=== PATIENT | female | born 1990 | race Asian ===

== ENCOUNTER 2018-01-05 15:52 | Emergency (ER) | payer OTHER ==
[~2018-01-05] VITALS: Ht 162.6 cm; Wt 62.0 kg
[~2018-01-05 15:52] MED LIST: RISP1TAB18 PO; VENL75CA94 PO
[2018-01-05 15:54] VITALS: Ht 162.6 cm; Wt 62.0 kg
[2018-01-05] MEDS ORDERED: QUET1TAB7 PO (16:26)
--- NOTE | 2018-01-05 16:50 | EMERGENCY ROOM VISIT NOTE ---
History Report prepared by Mervat: Carlitos Cruz Under the Supervision of: Dr. Ezekiel Cruz M.D. First contact with patient: 15:58 Chief Complaint: MENTAL HEALTH EVALUATION Stated Complaint: FEEL DESPERATE WANT TO END MY LIFE DO NOT WANT TO History of Present Illness The patient is a 27 year old female who presents to the Emergency Room with complaints of constant suicidal ideations beginning a few days ago. The patient states she has been feeling very hopeless about her life. She reports she feels suicidal and cannot sleep because of it. The patient notes she wants to cut herself. She states she grabbed a knife yesterday, and she did not do anything because her mother was home. She notes she was in [facility] three weeks ago and was discharged on Risperdal. The patient reports she has not taken her medication that she was prescribed because her doctor in [place] and her doctor here are telling her to take two different things. She notes she is afraid to do anything including brushing her teeth and showering while on the Risperdal. The patient denies homicidal ideations, auditory hallucinations, physical complaints, chest pain, swelling in her legs, overdosing on medication, taking aspirin or Tylenol, drug use, and alcohol use. The patient's friends and family state she has appeared drained for the past week. They reports they called [facility] and did not talk to anyone. 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 They state she is not coming back this fall and is supposed to go home to [place] on January 08. The friends and family report a flight has not been booked yet because she is not stable. Source of History: patient, parent, family Onset: a few days ago Quality: other (suicidal ideations) Timing: constant Modifying Factors (Worsening): other (stressful environment) Associated Symptoms: No chest pain Note: Associated symptoms: feeling hopeless, inability to sleep Denies: homicidal ideations, auditory hallucinations, physical complaints, swelling in her legs, overdosing on medication, taking aspirin or Tylenol, drug use, and alcohol use Review of Systems See HPI for pertinent positives & negatives. A total of 10 systems reviewed and were otherwise negative. Past Medical & Surgical Medical Problems: (1) Bipolar II disorder (2) depression (3) History of depression (4) Nausea Old medical records were reviewed. Nurse's notes were reviewed and I agree with. Family History Patient reports no known family medical history. Social History Smoking Status: Never Smoker Drug Use: none Marital Status: single Housing Status: lives with roommate Occupation Status: [email or web address] student Current/Historical Medications Scheduled Quetiapine Fumarate (Seroquel), 25 MG PO DAILY Venlafaxine Hcl (Effexor Xr), 150 MG PO QAM Allergies Coded Allergies: No Known Allergies (Unverified , 01/05/18) Physical Exam Vital Signs Date Time Temp Pulse Resp B/P (MAP) Pulse Ox O2 Delivery O2 Flow Rate FiO2 01/05/18 18:30 89 18 118/67 98 Room Air 01/05/18 15:54 37.1 114 17 131/85 98 Room Air Physical Exam General: Non-ill appearing young female in no acute distress. HEENT: Normal cephalic atraumatic. Pupils are equal round and reactive to light. Extraocular movements are intact. Oropharynx is pink with moist mucous membranes. No swelling of the mouth lips or tongue. Neck: Supple with a midline trachea. No meningeal signs or stiffness, no JVD or bruits. No Stridor. Chest: Clear to auscultation bilaterally. No wheezes or rhonchi. No increased work of breathing. Heart: regular rate and rhythm. Abdomen: Soft nontender, nondistended without rebound guarding or rigidity. Extremities: No cyanosis clubbing or edema. No calf tenderness or assymetry Spine/Back. Non tender to palpation. No CVA tenderness Skin: Good turgor without rashes. Neurologic exam: Cranial nerves two through 12 are intact. Motor and sensation are intact and symmetrical throughout. Psychiatric: Flattened affect, softly spoken, suicidal ideations, denies homicidal ideations. Medical Decision & Procedures Laboratory Results 01/05/18 16:38 Red Blood Count 4.23, Mean Corpuscular Volume 92.4, Mean Corpuscular Hemoglobin 31.4, Mean Corpuscular Hemoglobin Concent 34.0, Mean Platelet Volume 9.1, Neutrophils (%) (Auto) 72.9, Lymphocytes (%) (Auto) 17.5, Monocytes (%) (Auto) 8.7, Eosinophils (%) (Auto) 0.3, Basophils (%) (Auto) 0.3, Neutrophils # (Auto) 8.41, Lymphocytes # (Auto) 2.01, Monocytes # (Auto) 1.00, Eosinophils # (Auto) 0.03, Basophils # (Auto) 0.03 01/05/18 16:38 Test 01/05/18 16:38 01/05/18 17:00 White Blood Count 11.51 K/uL (4.8-10.8) Red Blood Count 4.23 M/uL (4.2-5.4) Hemoglobin 13.3 g/dL (12.0-16.0) Hematocrit 39.1 % (37-47) Mean Corpuscular Volume 92.4 fL (80-100) Mean Corpuscular Hemoglobin 31.4 pg (25-34) Mean Corpuscular Hemoglobin Concent 34.0 g/dl (32-36) Platelet Count 314 K/uL (130-400) Mean Platelet Volume 9.1 fL (7.4-10.4) Neutrophils (%) (Auto) 72.9 % Lymphocytes (%) (Auto) 17.5 % Monocytes (%) (Auto) 8.7 % Eosinophils (%) (Auto) 0.3 % Basophils (%) (Auto) 0.3 % Neutrophils # (Auto) 8.41 K/uL (1.4-6.5) Lymphocytes # (Auto) 2.01 K/uL (1.2-3.4) Monocytes # (Auto) 1.00 K/uL (0.11-0.59) Eosinophils # (Auto) 0.03 K/uL (0-0.5) Basophils # (Auto) 0.03 K/uL (0-0.2) RDW Standard Deviation 42.4 fL (36.4-46.3) RDW Coefficient of Variation 12.5 % (11.5-14.5) Immature Granulocyte % (Auto) 0.3 % Immature Granulocyte # (Auto) 0.03 K/uL (0.00-0.02) Anion Gap 7.0 mmol/L (3-11) Est Creatinine Clear Calc Drug Dose 101.8 ml/min Estimated GFR () 132.7 Estimated GFR (Non- 114.5 BUN/Creatinine Ratio 9.9 (10-20) Calcium Level 9.3 mg/dl (8.5-10.1) Total Bilirubin 0.2 mg/dl (0.2-1) Direct Bilirubin < 0.1 mg/dl (0-0.2) Aspartate Amino Transf (AST/SGOT) 11 U/L (15-37) Alanine Aminotransferase (ALT/SGPT) 23 U/L (12-78) Alkaline Phosphatase 66 U/L (45-117) Total Protein 8.7 gm/dl (6.4-8.2) Albumin 4.3 gm/dl (3.4-5.0) Lipase 121 U/L (73-393) Thyroid Stimulating Hormone (TSH) 1.580 uIu/ml (0.300-4.500) Human Chorionic Gonadotropin, Qual NEG (NEG) Salicylates Level < 1.7 mg/dl (2.8-20) Acetaminophen Level < 2 ug/ml (10-30) Ethyl Alcohol mg/dL < 3.0 mg/dl (0-3) Urine Color YELLOW Urine Appearance CLOUDY (CLEAR) Urine pH 7.5 (4.5-7.5) Urine Specific [place] 1.011 (1.000-1.030) Urine Protein NEG (NEG) Urine Glucose (UA) NEG (NEG) Urine Ketones NEG (NEG) Urine Occult Blood 3+ (NEG) Urine Nitrite NEG (NEG) Urine Bilirubin NEG (NEG) Urine Urobilinogen NEG (NEG) Urine Leukocyte Esterase LARGE (NEG) Urine WBC (Auto) 10-30 /hpf (0-5) Urine RBC (Auto) 0-4 /hpf (0-4) Urine Hyaline Casts (Auto) 0 /lpf (0-5) Urine Epithelial Cells (Auto) >30 /lpf (0-5) Urine Bacteria (Auto) 3+ (NEG) Urine Pathogenic Casts /lpf (0) Urine Yeast (Auto) (NONE PRSENT) Urine Opiates Screen NEG (NEG) Urine Methadone, Qualitative NEG (NEG) Urine Barbiturates NEG (NEG) Urine Phencyclidine (PCP) Level NEG (NEG) Ur Amphetamine/Methamphetamine NEG (NEG) MDMA (Ecstasy) Screen NEG (NEG) Urine Benzodiazepines Screen NEG (NEG) Urine Cocaine Metabolite NEG (NEG) Urine Marijuana (THC) NEG (NEG) Laboratory studies as stated above per my review. ED Course 1602: Past medical records reviewed. The patient was evaluated in room A08, and a complete history and physical examination were performed. 1734: The patient is being evaluated by the mental health team. 1815: I discussed the test results with the patient and her friends and family. They have agreed to admission. 1837: There are no local beds available. They do not want to wait for a local bed. 1847: I discussed the need for admission. They are willing to wait for a local bed. 2145: I reevaluated the patient. She is sleeping. The bed search was suspended until morning. 2230: Ordered Quetiapine Fumarate 25mg PO 0030: The patient was signed out to Dr. Ozuna at the end of shift pending placement. Please refer to her documentation for more information. Medical Decision Differentials include, but are not limited to; depression, anxiety, suicidal ideations, metabolic abnormalities, toxicological process. This patient comes in for evaluation mental health issues. She was placed in room A7. She has not been sleeping and has been feeling suicidal. She has not tried to hurt herself but thought about cutting herself with a knife. She has been seen here as well as his follow on campus. She is dropping out of the semester and is going home to [place] when she is stable. She also has a doctor there. She is here with her mother as well as family friends. Urinalysis and blood work was obtained for medical clearance. She was seen by our psychiatric case filler. She was medically clear. She has nothing to suggest acute toxicologic, metabolic, electrolyte, or infectious process. Unfortunately there are no bed openings and the psych facilities locally are all full. She is going to end up staying here tonight and they will a resume bed search in the morning. With her thoughts of hurting herself I do not feel she can safely go home. I reviewed her regular meds and gave her evening dose of Seroquel 25 mg. She will be signed out at shift change to Dr. Ozuna who is the chicken cleaner doctor. Medication Reconcilliation Current Medication List: was personally reviewed by me Blood Pressure Screening Patient's blood pressure: Normal blood pressure Blood pressure disposition: Did not require urgent referral Impression Primary Impression: Suicidal ideation Additional Impressions: Depression Acute anxiety Scribe Attestation The scribe's documentation has been prepared under my direction and personally reviewed by me in its entirety. I confirm that the note above accurately reflects all work, treatment, procedures, and medical decision making performed by me. Departure Information Dispostion Still a Patient Referrals [facility] (PCP) Forms HOME CARE DOCUMENTATION FORM, IMPORTANT VISIT INFORMATION Patient Instructions My [facility] Problem Qualifiers
[2018-01-05 16:56] LABS: BASO % 0.3 %; BASO ABS # 0.03 K/uL (0-0.2); EOS % 0.3 %; EOS ABS # 0.03 K/uL (0-0.5); HEMATOCRIT 39.1 % (37-47); HEMOGLOBIN 13.3 g/dL (12.0-16.0); IG# 0.03 K/uL (0.00-0.02); LYMPH % 17.5 %; LYMPH ABS # 2.01 K/uL (1.2-3.4); MEAN CELL VOLUME 92.4 fL (80-100); MEAN CORPUSCULAR HEMOGLOBIN 31.4 pg (25-34); MEAN PLATELET VOLUME 9.1 fL (7.4-10.4); MONO % 8.7 %; NEUT % 72.9 %; NEUT ABS # 8.41 K/uL (1.4-6.5); PLATELET COUNT 314 K/uL (130-400); RED CELL DISTRIBUTION WIDTH CV 12.5 % (11.5-14.5); RED CELL DISTRIBUTION WIDTH SD 42.4 fL (36.4-46.3); WHITE BLOOD COUNT 11.51 K/uL (4.8-10.8)
[2018-01-05 17:25] LABS: ALBUMIN 4.3 gm/dl (3.4-5.0); ALKALINE PHOSPHATASE 66 U/L (45-117); ALT/SGPT 23 U/L (12-78); AST/SGOT 11 U/L (15-37); BLOOD UREA NITROGEN 7 mg/dl (7-18); CALCIUM 9.3 mg/dl (8.5-10.1); CARBON DIOXIDE 28 mmol/L (21-32); CREATININE 0.73 mg/dl (0.60-1.20); GLUCOSE 104 mg/dl (70-99); LIPASE 121 U/L (73-393); SODIUM 137 mmol/L (136-145); TOTAL PROTEIN 8.7 gm/dl (6.4-8.2)
[2018-01-05] MEDS ORDERED: QUETIAPINE FUMARATE 25 MG TAB PO STA (22:31)
[2018-01-05] MEDS ORDERED: hydrOXYzine HCL 25 MG TAB PO STA (23:35)
[2018-01-06] MEDS ORDERED: VENLAFAXINE HCL XR 75 MG CAPXR PO STA (05:18)
--- NOTE | 2018-01-06 05:19 | EMERGENCY ROOM VISIT NOTE ---
ED Visit Note First contact with patient: 01:23 This case was signed out to me at change of shift awaiting bed placement. The patient is having suicidal thoughts and is willing to sign herself in voluntarily. Nursing staff explained that she is having difficulty with sleep. I have ordered the patient 25 mg of oral Benadryl. The bed search will continue in the morning. The patient was able to finally rest. I will order her morning dose of Effexor XR. The case will be signed out to at change of shift awaiting bed placement. I did discuss the case with staff and [facility] and they thought they may possibly have a bed available for this patient in the morning.
[2018-01-06 12:34] VITALS: BP 118/70; PULSE 87; TEMP 37.1; O2SAT 99
--- NOTE | 2018-01-06 13:32 | EMERGENCY ROOM VISIT NOTE ---
ED Visit Note The patient was signed out to me. The patient is going to the [facility]. Secure transport arranged.
== END 2018-01-06 12:36 ==
LOC: C.EDB 15:53 → C.EDA 01-06 12:36
DX: R45.851 Suicidal ideations (principal); F41.8 Other specified anxiety disorders; F31.81 Bipolar II disorder; Z79.899 Other long term (current) drug therapy